=== PATIENT | female | born 1945 | race Caucasian/White ===

== ENCOUNTER 2017-10-11 19:06 | Emergency (ER) | payer MEDICARE ==
[~2017-10-11] VITALS: Ht 152.4 cm; Wt 61.8 kg
[~2017-10-11 19:06] MED LIST: ACIDOPHILU4 PO; ATENOLOL25 MG OR; BACTRIM DS1 TAB PO; BONIVA150 MG OR; CALCIUM 1000 + D OR; CHILD ASA81 MG OR; CIPROFLOXACN500 MG PO; COCONUT OIL O1000 MG PO; FISH OIL300 MG OR; FLAX OIL OR; FLORASTOR250 M1 PO; FLUZONE SPLT1 M1 IM; GABAPENTIN300 MG PO; LORTAB5 PO; MENEST1.25 MG OR; METRONIDAZOLE250 MG PO; MULTI OR; NEXIUM40 M1 PO; RESTORIL15 M1 OR; SUPER B COM2 OR; VANCOMYCIN HCL250 MG PO; VITAMIN D2000 UNI1 OR; VIVELLE-DOT0.1 MG TD; [UNRECOGNIZED DRUG - OTHER] OR
[2017-10-11] MEDS ORDERED: NEXIUM40 M1 PO (19:58)
[2017-10-11] MEDS ORDERED: CRESTOR10 MG PO (19:58)
[2017-10-11 20:00] LABS: HEMATOCRIT 49.7 % (37.0-47.0); HEMOGLOBIN 16.6 g/dl (12.0-16.0); IMMATURE GRANULOCYTES 0.7 % (0.0-1.0); MEAN CELL VOLUME 87.5 fL CALC (80.0-100.0); MEAN CORPUSCULAR HGB 29.2 pG CALC (26.0-32.0); MEAN CORPUSCULAR HGB CONC 33.4 g/L CALC (32.0-36.0); NEUT# 11.26 thou/uL (2.00-7.15); RED BLOOD COUNT 5.68 mill/uL (4.20-5.60); RED CELL DISTRI WIDTH 13.5 % (11.5-15.5)
[2017-10-11 20:15] LABS: ALBUMIN 4.7 g/dL (3.2-5.0); ALKALINE PHOSPHATASE 60 u/l (38-126); ANION GAP 16 (6-22 (CALC)); BILIRUBIN, TOTAL 0.6 mg/dL (0.0-1.4); BUN 18 mg/dL (8-23); BUN/CREATININE RATIO 20 (12-20 (CALC)); CARBON DIOXIDE 26 mmol/l (22-30); CHLORIDE 101 mmol/l (95-108); CREATININE 0.9 mg/dL (0.5-1.0); GFR > 60 ML/MIN (>=60 (CALC)); GFR FOR AFR.AMER. > 60 ML/MIN (>=60 (CALC)); POTASSIUM 4.4 mmol/l (3.5-5.1); SGOT/AST 29 u/l (9-36); SGPT/ALT 24 u/l (11-66); SODIUM 139 mmol/l (137-146); TOTAL PROTEIN 7.9 g/dL (6.3-8.2)
[2017-10-11 22:50] VITALS: BP 148/69
== END 2017-10-11 22:57 | disposition home or self-care (01) ==
LOC: ED 19:06
PROVIDERS: Emergency Medicine
DX: R00.2 Palpitations (principal)

== ENCOUNTER → 2018-06-10 | Outpatient (REF) | payer MEDICARE ==
[~2018-06-10] MED LIST changes: +CRESTOR10 MG PO
== END | disposition home or self-care (01) ==
LOC: LAB 08:39
DX: E34.9 Endocrine disorder, unspecified (principal); R53.83 Other fatigue; R68.82 Decreased libido; Z79.890 Hormone replacement therapy

== ENCOUNTER 2020-05-08 22:03 | Observation (INO) | payer MEDICARE ==
[~2020-05-08] VITALS: Ht 152.4 cm; Wt 61.5 kg
--- NOTE | 2020-05-08 22:04 | NUR ---
TO ROOM BY W/C.
[2020-05-08 22:55] LABS: HEMATOCRIT 45.8 % (37.0-47.0); HEMOGLOBIN 14.6 g/dl (12.0-16.0); IMMATURE GRANULOCYTES 0.3 % (0.0-5.0); MEAN CELL VOLUME 88.9 fL CALC (80.0-100.0); MEAN CORPUSCULAR HGB 28.3 pG CALC (26.0-32.0); MEAN CORPUSCULAR HGB CONC 31.9 g/dL CAL (32.0-36.0); NEUT# 7.18 thou/uL (2.00-7.15); RED BLOOD COUNT 5.15 mill/uL (4.20-5.60); RED CELL DISTRI WIDTH 13.8 % (11.5-15.5)
--- NOTE | 2020-05-08 23:00 | NUR ---
RESTING QUIETLY, PAIN FREE.
[2020-05-08] MEDS ORDERED: TENORMIN25 MG PO (23:01)
[2020-05-08] MEDS ORDERED: FISH OIL1 CAP PO (23:02)
[2020-05-08] MEDS ORDERED: ZINC30 M1 PO (23:04)
[2020-05-08 23:17] LABS: ALBUMIN 4.2 g/dL (3.2-5.0); ALKALINE PHOSPHATASE 76 u/l (38-126); ANION GAP 11 (6-22 (CALC)); BUN 16 mg/dL (8-23); BUN/CREATININE RATIO 20 (12-20 (CALC)); CARBON DIOXIDE 26 mmol/l (22-30); CHLORIDE 102 mmol/l (95-108); CREATININE 0.8 mg/dL (0.5-1.0); GFR > 60 ML/MIN (>=60 (CALC)); GFR FOR AFR.AMER. > 60 ML/MIN (>=60 (CALC)); SGOT/AST 47 u/l (9-36); SODIUM 135 mmol/l (137-146)
[2020-05-08 23:20] LABS: BILIRUBIN, TOTAL 0.9 mg/dL (0.0-1.4)
[2020-05-08 23:30] LABS: MYOGLOBIN 27 ng/mL (0 - 62)
[2020-05-08 23:50] LABS: URINE BILIRUBIN - DIPSTICK NEGATIVE (NEGATIVE); URINE BLOOD DIPSTICK NEGATIVE (NEGATIVE); URINE COLOR YELLOW; URINE GLUCOSE - DIPSTICK NEGATIVE (NEGATIVE); URINE KETONE NEGATIVE (NEGATIVE); URINE LEUK ESTERASE NEGATIVE (NEGATIVE); URINE NITRITE - DIPSTICK NEGATIVE (Negative); URINE PROTEIN - DIPSTICK NEGATIVE (NEG-TRACE); URINE UROBILINOGEN - DIPSTICK 0.2 E.U./dL (0.2)
--- NOTE | 2020-05-09 | NUR ---
REMAINS PAIN FREE. AWAITING DISPO.
--- NOTE | 2020-05-09 00:26 | NUR ---
Admission Note Report Given to: VALERIE LARKIN Transported by: X Wheelchair Stretcher Transported with: X Nurse Transporter X Patent IV O2 X Developer Programmer Location: ICU X [facility]
--- NOTE | 2020-05-09 00:35 | NUR ---
PT ARRIVED TO [facility]2 VIA WHEELCHAIR ACCOMPANIED BY ER NURSE, PT ALERT AND ORIENTED X3, AMBULATED WITH STEADY GAIT TO BED, ORIENTED PT TO ROOM AND CALL LIGHT, DISCUSSED POC AND LAB DRAWS, PT VERBALIZED UNDERSTANDING. PT REFUSED TEDS. SKIN INTACT NO EDEMA, LUNGS CLEAR. ADMISSION ASSESSMENT COMPLETED, CALL LIGHT IN REACH,CONTINUE TO MONITOR.
[2020-05-09 00:38] VITALS: BP 158/78
[2020-05-09 05:35] VITALS: BP 142/72
--- NOTE | 2020-05-09 06:15 | NUR ---
PT RESTING IN BED,NO SIGNS OF DISTRESS NOTED, RESP EVEN AND UNLABORED. CALL LIGHT IN REACH,CONTINUE TO MONITOR.
[2020-05-09 07:01] VITALS: BP 118/70
--- NOTE | 2020-05-09 07:01 | NUR ---
PT SLEEPING IN BED. AWAKENED TO COMPLETE ASSESSMENT. A&O X3. NO DISTRESS NOTED. PT DENIES ANY CURRENT CP AT THIS TIME. REPORTS TO BE "FEELING BETTER THAN YESTERDAY". NO OTHER NEEDS AT THIS TIME. ASSESSMENT COMPLETED. DISCUSSED POC. CALL LIGHT IN REACH. CONTINUE TO MONITOR.
--- NOTE | 2020-05-09 08:33 | NUR ---
NEW ONSET OF CP. STAT EKG ORDERED.
--- NOTE | 2020-05-09 08:40 | NUR ---
DR KING AT BEDSIDE DISCUSSING POC, DUE TO EKG CHANGES AND ELEVATED TROPONIN AND NEW ONSET OF CP PT TO BE TRANSFERRED TO [facility] FOR A CARDIOLOGY CONSULT
--- NOTE | 2020-05-09 09:05 | NUR ---
PER FERNA[facility]O ACCEPTING PHYSICIAN WILL BE DR. HILLMAN. PT AND UPDATED ON POC AND TRANSFER. CASE MANAGEMENT CARLY UPDATED ON ACCEPTING PHYSICIAN.
[2020-05-09 10:38] VITALS: BP 137/73
--- NOTE | 2020-05-09 11:42 | NUR ---
TYREE LAURA FROM [facility] PT GOING TO ROOM 773 BED A CASE MANAGEMENT UPDATED. [facility] TO BE CALLED
--- NOTE | 2020-05-09 14:16 | NUR ---
PT TAKEN VIA STRETCHER BY [facility]. PT IN STABLE CONDITION.
--- NOTE | 2020-05-09 14:29 | NUR ---
REPORT GIVEN TO NICK PADILLA AT [facility]
== END 2020-05-09 14:16 | disposition short-term general hospital (02) ==
LOC: ED 22:03 → ED-I 23:44 → ED 05-09 00:05 → MS2 05-09 00:06
PROVIDERS: Emergency Medicine; ADMIT Internal Medicine; ATTEND Internal Medicine
DX: I21.4 Non-ST elevation (NSTEMI) myocardial infarction (principal); E78.5 Hyperlipidemia, unspecified; D47.3 Essential (hemorrhagic) thrombocythemia; Z87.11 Personal history of peptic ulcer disease; Z90.411 Acquired partial absence of pancreas; Z90.81 Acquired absence of spleen; Z20.828 Contact with and (suspected) exposure to other viral communicable diseases
CPT/HCPCS: G0378

== ENCOUNTER 2022-04-05 16:39 | Emergency (ER) | payer MEDICARE ==
[~2022-04-05] VITALS: Ht 152.4 cm; Wt 58.0 kg
[~2022-04-05 16:39] MED LIST changes: +FISH OIL1 CAP PO; +TENORMIN25 MG PO; +ZINC30 M1 PO
[2022-04-05 17:59] VITALS: BP 135/76
== END 2022-04-05 18:13 | disposition home or self-care (01) ==
LOC: ED 16:39
DX: U07.1 COVID-19 (principal); R05.9 Cough, unspecified; R52 Pain, unspecified